=== PATIENT | female | born 1965 | race American Indian/Alaskan Native ===

== ENCOUNTER 2018-11-22 18:14 | Emergency (ER) | payer OTHER ==
[2018-11-22 18:33] VITALS: BP 117/66
--- NOTE | 2018-11-22 18:40 | Emergency Department Report ---
Blank Doc - Documentation Documentation: This is a 53-year-old female that presents with abdominal pain with n/v and di arrhea. This initial assessment/diagnostic orders/clinical plan/treatment(s) is/are subject to change based on patient's health status, clinical progression and re- assessment by fellow clinical providers in the ED. Further treatment and workup at subsequent clinical providers discretion. Patient/guardians urged not to elope from the ED as their condition may be serious if not clinically assessed and managed. Initial orders include: 1- Patient sent to [facility] for further evaluation and treatment 2-labs 3- UA
[2018-11-22 19:05] LABS: Lymphocytes % (Auto) 31.5 % (13.4-35.0); Mean Corpuscular HGB Conc 31 % (30-34); Mean Corpuscular Volume 72 fl (79-97); Monocytes % (Auto) 6.9 % (0.0-7.3); Red Blood Count 5.26 M/mm3 (3.65-5.03); Red Cell Distribution Width 14.9 % (13.2-15.2)
[2018-11-22 19:06] LABS: Basophils # (Auto) 0.1 K/mm3 (0.0-0.1); Eosinophils # (Auto) 0.1 K/mm3 (0.0-0.4); Eosinophils % (Auto) 0.7 % (0.0-4.3); Lymphocytes # (Auto) 2.4 K/mm3 (1.2-5.4); Monocytes # (Auto) 0.5 K/mm3 (0.0-0.8)
[2018-11-22 19:13] LABS: Hematocrit 38.1 % (30.3-42.9); Hemoglobin 11.7 gm/dl (10.1-14.3); Platelet Count 278 K/mm3 (140-440)
[2018-11-22 19:24] LABS: Alanine Aminotransferase 9 units/L (7-56); Albumin 3.9 g/dL (3.9-5); BUN/Creatinine Ratio 25; Blood Urea Nitrogen 15 mg/dL (7-17); Calcium 9.1 mg/dL (8.4-10.2); Hemolysis Index 6
[2018-11-22 19:28] LABS: Bilirubin,Direct < 0.2 mg/dL (0-0.2)
[2018-11-22 19:29] LABS: Bacteria,Urine 1+ /HPF (Negative); Bilirubin,Urine NEG (Negative); Blood,Urine SM (Negative); Color,Urine Yellow (Yellow); Mucus,Urine 1+ /HPF; Protein,Urine <15 mg/dL mg/dL (Negative)
== END 2018-11-22 19:39 | disposition left against medical advice (07) ==
LOC: ED 18:14
DX: R10.9 Unspecified abdominal pain (principal); Z53.21 Procedure and treatment not carried out due to patient leaving prior to being seen by health care provider
CPT/HCPCS: 36415; 80048; 80076; 81001; 83690; 85025